=== PATIENT | male | born 1990 | race Caucasian/White ===

== ENCOUNTER → 2019-06-05 | Outpatient (CLI) | payer OTHER ==
[~2019-06-05] MED LIST: GADOTERATE 5 MMOL/10ML VIAL. INT ART ONE; IOHEXOL 300 MG/ML 50 ML VIAL. INT ART ONE; LIDOCAINE 1% Multi-Dose 20 ML VIAL. ID ONE
--- NOTE | 2019-06-05 14:27 | KCIC ---
EXAM: Left FLUOROSCOPY GUIDED SHOULDER ARTHROGRAM History: Severe left shoulder pain, injury COMPARISON: None available TECHNIQUE: Consent: A written, informed consent was obtained from the patient prior to the procedure. The skin was prepped and draped in the usual fashion under aseptic precautions. Dilute 1% lidocaine was used for local anesthesia. Under fluoroscopic guidance a 22 gauge long spinal needle was used to access the shoulder joint. A mixture of fall 5 mm lidocaine, 5 mL of Omnipaque 300, 10 mL of saline and 0.1 mL of gadolinium wrist was injected under fluoroscopic guidance. The needle was removed. No immediate complications. The patient was transferred to the MRI suite. 17 seconds of total fluoroscopy time was utilized. One fluoroscopic images obtained. IMPRESSION: Technically successful left shoulder arthrogram. Electronically signed by: Joshua Nye MD (06/05/2019 2:24 PM) [id number]
--- NOTE | 2019-06-05 15:20 | KCIC ---
Examination: MR arthrogram left shoulder HISTORY: History of injury left shoulder, left shoulder pain COMPARISON: None available TECHNIQUE: Multiplanar, multisequence MR imaging of the left shoulder were performed after arthrogram injection. FINDINGS: The long head of the biceps tendon within the bicipital groove. The attachment of the long head the biceps tendon to the superior labral anchor grossly appears intact. The attachment of the subscapularis tendon grossly appears intact. The attachment of the supraspinatus, infraspinatus tendon grossly appears intact. The muscle bulk grossly appears unremarkable. No evidence of rotator cuff tear identified. There is low T1 signal with corresponding high T2 signal identified in the acromion likely nondisplaced fracture with probable os acromiale more distally. There is mild increased signal identified in the superior labrum extending anteriorly and posteriorly. Anterosuperior labrum appears attenuated with prominent appearing middle glenohumeral ligament likely [place] complex. Minimal trabecular edema posterolateral humerus head probably contusion. The muscle bulk grossly appears unremarkable. IMPRESSION: 1. Nondisplaced fracture of the acromion. An os acromiale is also identified. Consider CT for better evaluation. 2. Probable SLAP tear of the labrum. 3. Attenuated appearance of the anterosuperior labrum prominent appearing middle glenohumeral ligament likely a [place] complex. 4. Mild contusion posterolateral humerus head. Electronically signed by: Joshua Nye MD (06/05/2019 3:17 PM) [id number]
== END | disposition home or self-care (01) ==
LOC: KCIC 12:24
PROVIDERS: ATTEND Orthopaedic Surgery
DX: S42.125A Nondisplaced fracture of acromial process, left shoulder, initial encounter for closed fracture (principal); S43.432A Superior glenoid labrum lesion of left shoulder, initial encounter; X58.XXXA Exposure to other specified factors, initial encounter; Y93.89 Activity, other specified; Y92.89 Other specified places as the place of occurrence of the external cause; Y99.8 Other external cause status
CPT/HCPCS: 73040; 73222; A9575; Q9967